=== PATIENT | female | born 1995 | race Caucasian/White ===

== ENCOUNTER 2023-05-08 08:56 | Outpatient (AMB) | payer OTHER, SELFPAY ==
--- NOTE | 2023-05-08 10:16 | MHC.OFFWIV ---
Intake Vital Signs 05/08/23 10:17 Height 5 ft 3 in Weight 90.718 kg BMI 35.4 BP 132/80 Blood Pressure Location Lt brachial Position Sitting Pulse 100 Pulse Source Pulse Oximeter Temp 97.9 F Temp Source Temporal Artery Scan Pulse Oximetry (%) 96 Intake Visit Reasons: [employer] ?Ear infection [phone] Intake Note: pt is here for c/o tooth infection spreading to ear Patient Tobacco Use Status: Never used Tobacco Allergies No Known Allergies Allergy (Verified 05/08/23 10:17) Do you need a note to return to daycare/school/sports/work: Yes HPI [employer] ?Ear infection [phone] HPI Details Patient presents with pain in the right lower jaw and ear area. She notes this is a recurring issue due to a wisdom tooth that needs extraction. She notes that intermittently causes pain at times but usually resolves on its own after a few days. She denies symptoms of URI, fever, ear discharge or change in hearing. Denies sore throat or dysphagia. PFSH Social History Patient Tobacco Use Status: Never used Tobacco Review of Systems Const Reports as per HPI and Reports no additional complaints ENT Reports no additional complaints and Reports as per HPI Card Reports as per HPI and Reports no additional complaints Resp Reports as per HPI and Reports no additional complaints Physical Exam Vital Signs: Last Vital Signs Temp 97.9 F 05/08/23 10:17 Pulse 100 05/08/23 10:17 BP 132/80 05/08/23 10:17 Pulse Ox 96 05/08/23 10:17 BMI result Body Mass Index 35.4 Const General: cooperative, comfortable and no acute distress Orientation/consciousness: patient oriented x3 HEENT Head: Yes normal to inspection Ears: external ears normal, TM's normal bilaterally and EAC's normal General nose exam: Normal external nose present and Normal nasal mucous membranes and turbinates present Face and sinus: Yes normal facial exam and Yes sinuses nontender Mouth: Normal oral and palatal mucosa present Teeth and gingiva: abnormal tooth and associated gingiva (Most posterior molar is partially erupted with some rubor around the gingiv) lower right tender and with associated gingival edema and no caries Throat: Yes posterior oropharynx normal Neck Neck: Yes no lymphadenopathy Resp Effort & Inspection: normal respiratory effort Auscultation: clear to auscultation bilaterally Cardio Rate: regular rate Rhythm: regular rhythm Heart sounds: S1 normal heart sound present and S2 normal heart sound present Neuro General: patient oriented x3 Assessment & Plan Assessment & Plan (1) Facial pain, acute: Code(s): R51.9 - Headache, unspecified Plan: Will start patient on a course of clarithromycin. Advised to place called her dentist for further evaluation of tooth and likely extraction. Return to clinic with any concerns. Medications: New clarithromycin 250 mg PO BID 7 days 14 tabs 0RF Coding Level of Care Code New Pt Level 3 (81569) Diagnoses Facial pain, acute R51.9
[2023-05-08 10:17] VITALS: BP 132/80; PULSE 100; TEMP 36.6; O2SAT 96; BMI 35.4
== END 2023-05-08 10:33 | disposition home or self-care (01) ==
PROVIDERS: Visit Provider Physician Assistant
DX: R51.9 Headache, unspecified (principal)
CPT/HCPCS: 99203